=== PATIENT | male | born 1950 | race Caucasian/White ===

== ENCOUNTER 2022-08-02 05:12 | Day surgery (SDC) | payer MEDICARE, OTHER ==
[~2022-08-02] VITALS: Ht 167.6 cm; Wt 100.9 kg
[~2022-08-02 05:12] MED LIST: AMIO200 PO; AMLO10TA55 PO; APIX5TAB PO; ASPI-1451 PO; ATOR20TA86 PO; COLC0.6T73 PO; DICL50TA7 PO; FURO20TA4 PO; GABA-529 PO; HYDR-4061 PO; LOSA-382 PO; METF-1211 PO; METO25 PO; OXYB5TAB20 PO; PANT40TA54 PO; SUCR1TAB PO; TAMS-13 PO; TRAZ-257 PO; ZOLP10TA8 PO
[2022-08-02] MEDS ORDERED: SODIUM CHLORIDE 0.9% 1,000 ML IV ONE ×2 (05:30→07:30)
[2022-08-02] MEDS ORDERED: SODIUM CHLORIDE 0.9% 1,000 ML ONE (05:30)
[2022-08-02] MEDS ORDERED: DIAZEPAM 5 MG TABLET ONE (06:37)
[2022-08-02] MEDS ORDERED: ASPIRIN 81 MG CHEWABLE TABLET ONE (06:37)
[2022-08-02] MEDS ORDERED: DiphenhydrAMINE HCL 50 MG CAPSULE ONE (06:38)
[2022-08-02] MEDS ORDERED: GABA-1216 PO (06:43)
[2022-08-02] MEDS ORDERED: PLEC3TAB2 PO (06:43)
[2022-08-02] MEDS ORDERED: TEMA30CA PO (06:43)
[2022-08-02] MEDS ORDERED: ASPIRIN 81 MG CHEWABLE TABLET PO ONE (07:30)
[2022-08-02] MEDS ORDERED: DiphenhydrAMINE HCL 50 MG CAPSULE PO ONE (07:30)
[2022-08-02] MEDS ORDERED: DIAZEPAM 5 MG TABLET PO ONE (07:30)
[2022-08-02] MEDS ORDERED: FentaNYL CITRATE PF 100 MCG/2 ML VIAL ONE (07:41)
[2022-08-02] MEDS ORDERED: LIDOCAINE/PF 1% 30 ML VIAL ONE (07:42)
[2022-08-02] MEDS ORDERED: MIDAZOLAM HCL 2 MG/2 ML VIAL ONE (07:42)
[2022-08-02] MEDS ORDERED: SODIUM BICARBONATE 50 MEQ/50 ML VIAL ONE (07:42)
[2022-08-02] MEDS ORDERED: IOHEXOL 300 MG/ML 100 ML VIAL ONE (07:43)
[2022-08-02 07:46] LABS: GLUCOMETER DEV NAME(LOC) SDS.; GLUCOSE,POINT OF CARE 82 MG/DL (70-110)
[2022-08-02] MEDS ORDERED: MIDAZOLAM HCL 2 MG/2 ML VIAL IVP ONE ×2 (08:00→08:45)
[2022-08-02] MEDS ORDERED: FentaNYL CITRATE PF 100 MCG/2 ML VIAL IVP ONE ×2 (08:00→08:15)
[2022-08-02] MEDS ORDERED: LIDOCAINE 1% 30 ML/SOD BICARB 8.4% 4 ML SQ ONE (08:00)
[2022-08-02] MEDS ORDERED: IOHEXOL 300 MG/ML 100 ML VIAL ICOR ONE (08:00)
[2022-08-02] MEDS ORDERED: HEPARIN SODIUM 2,000 UNITS in HEPARIN SODIUM 1000 UNITS/NS 1,000 ML IARTER ONE (08:00)
[2022-08-02 08:23] VITALS: BP 149/70
[2022-08-02 08:46] VITALS: BP 140/71
== END 2022-08-02 15:40 | disposition home or self-care (01) ==
LOC: CATHLAB 05:12
PROVIDERS: ATTEND Internal Medicine Interventional Cardiology
DX: I35.0 Nonrheumatic aortic (valve) stenosis (principal); I27.20 Pulmonary hypertension, unspecified; Z87.891 Personal history of nicotine dependence; Z98.890 Other specified postprocedural states; Z79.899 Other long term (current) drug therapy; I25.2 Old myocardial infarction; E78.00 Pure hypercholesterolemia, unspecified
CPT/HCPCS: 93460; 82962; 99152; 99153; 93005; C1760; J3010; J3490 ×2; J2250; J7030; Q9967